=== PATIENT | male | born 1960 | race Caucasian/White ===

== ENCOUNTER → 2023-02-23 | Day surgery (SDC) | payer BC ==
[~2023-02-23] MED LIST: AMRIX30 MG; ASPIRIN81 MG PO; ATORVASTATIN CA20 MG PO; BALANCED SALT SOLN (OPTH) 15 ML BTL IO ONE; DEXAMETHASONE SOD PHOS INJ 4 MG/ML SDV ONE; EPHEDRINE SULFATE INJ 50 MG/ML VIAL ONE; FAMOTIDINE 20 MG/2 ML VIAL IV ONE; FENTANYL CITRATE/PF 100MCG/2 ML INJ ONE; HYDROCODONE-AC118 M1; HYDROCODONE/APAP 10MG-325MG TAB ONE; JARDIANCE25 MG PO; LACTATED RINGER'S 1,000 ML ONE; LIDOCAINE 2%/ EPINEPHRINE 20ML MDV ONE; LIDOCAINE HCL 2% LOCAL INJ 5 ML SDV VIAL INJ ONE; LOSARTAN-HCTZ1 EACH; LYRICA50 MG PO; MIDAZOLAM HCL 2 MG/2 ML VIAL ONE; ONDANSETRON HCL INJ 2MG/ML 2ML 2 MG/ML VIAL ONE; POVIDONE IODINE 5% (OPTH) 30 ML BTL ONE; PROPOFOL IV EMULSION 10 MG/ML 20 ML VIAL ONE; SEVOFLURANE INHAL SOLN 250 ML PEN BTL ONE; TOBRAMYCIN 0.3% OPTH OINT 3.5 GM TUBE ONE; TRICOR48 MG PO; VALSARTAN-HCTZ1 EAC1 PO; ZOLPIDEM TARTRAT5 MG PO
[2023-02-23 14:00] VITALS: BP 129/80; PULSE 89; RESP 16; O2SAT 98
== END | disposition home or self-care (01) ==
LOC: OR 07:16
PROVIDERS: ATTEND Otolaryngology Otolaryngology/Facial Plastic Surgery
DX: Z48.3 Aftercare following surgery for neoplasm (principal); Z85.828 Personal history of other malignant neoplasm of skin; I10 Essential (primary) hypertension; I25.10 Atherosclerotic heart disease of native coronary artery without angina pectoris; J44.9 Chronic obstructive pulmonary disease, unspecified; F17.200 Nicotine dependence, unspecified, uncomplicated; E11.9 Type 2 diabetes mellitus without complications; Z79.84 Long term (current) use of oral hypoglycemic drugs; K21.9 Gastro-esophageal reflux disease without esophagitis; I73.9 Peripheral vascular disease, unspecified; Z86.73 Personal history of transient ischemic attack (TIA), and cerebral infarction without residual deficits; Z79.82 Long term (current) use of aspirin; Z79.899 Other long term (current) drug therapy
CPT/HCPCS: 20912; 36415; 67961; 82948; 88304; J1100; J2001 ×2; J2250; J2405; J2704; J3010; J7121; 88300